=== PATIENT | female | born 1945 | race Caucasian/White ===

== ENCOUNTER 2025-05-16 18:37 | Emergency (ER) | payer MEDICARE ==
[2025-05-16 20:13] LABS: Glucose, Urine (Dipstick) Normal (Negative); Leukocyte Negative (Negative); Protein, Urine (Dipstick) 15 mg/dl (Neg-Trace); Specific Gravity, Urine 1.025 (1.005-1.030)
[2025-05-16 20:29] LABS: CAUTI Indications for Culture Alt mental st,lethar; WBC/HPF 0-3 HPF (0-3)
[2025-05-16 20:32] LABS: Bacteria/HPF 2+ HPF (None Seen); Mucous/LPF 3+ LPF (<2+)
[2025-05-16 20:34] LABS: Urine Culture Reflex No No
[2025-05-16] MEDS ORDERED: Bisacodyl 10 MG SUPP ONE (21:19)
== END 2025-05-16 21:53 | disposition home or self-care (01) ==
LOC: CSHERS 18:37
DX: K59.00 Constipation, unspecified (principal); I10 Essential (primary) hypertension
CPT/HCPCS: 74176; 81001